=== PATIENT | female | born 1955 | race Caucasian/White ===

== ENCOUNTER 2017-04-16 20:24 | Emergency (ER) | payer BC ==
[2017-04-16] MEDS ORDERED: diphenhydrAMINE 50 MG/ML SDV IVPUSH ONE (20:35)
[2017-04-16] MEDS ORDERED: methylPREDNISolone Sodium Succinate 125 MG/2 ML SDV IVPUSH ONE (20:35)
--- NOTE | 2017-04-16 20:55 | EDM.PDOC ---
ED HPI GENERAL MEDICAL PROBLEM - General Chief Complaint: Allergic Reaction Stated Complaint: REACTION VERY RED Time Seen by Provider: 04/16/17 20:50 Source of Information: Reports: Patient, Family History Limitations: Reports: No Limitations - History of Present Illness INITIAL COMMENTS - FREE TEXT/NARRATIVE: 61-year-old female arrives with an acute systemic cutaneous allergic reaction with redness, pruritus and discomfort. She was started on prednisone for poison rosalee on her wrists and face, and is also taking drops under her tongue for "Lyme' s disease". Tonight after a walk she was looking at her tompkins in her garden when she started to get lower abdominal discomfort and felt she needed to have diarrhea. She then became warm and started to have redness of her chest and face , went in to take a shower and it worsened and became more diffuse. She then felt it was difficult to swallow and was having some tongue swelling so came in. She arrived with normal vitals but diffuse erythema of the face chest and extremities. She felt shaky. Onset: Sudden Duration: Hour(s): (Within the last hour) Location: Reports: Generalized Severity: Moderate Associated Symptoms: Reports: Other (A sensation of oral swelling and tongue thickness, some difficulty swallowing). Denies: Fever/Chills, Headaches, Shortness of Breath Generalized Pain Score (Numeric/FACES): 2 - Related Data Allergies Allergy/AdvReac Type Severity Reaction Status Date / Time erythromycin base AdvReac Shortness Verified 04/16/17 20:47 of Breath Home Meds: Home Meds Cholecalciferol (Vitamin D3) [Vitamin D] 1,000 unit PO DAILY 12/23/14 [History] Evening [place] Oil [Evening [place]] 500 mg PO BEDTIME 12/23/14 [History] Multivitamin with Minerals [Multiple Vitamin] 1 tab PO DAILY 12/23/14 [History] Social & Family History - Tobacco Use Smoking Status *Q: Never Smoker Second Hand Smoke Exposure: No - Alcohol Use Days Per Week of Alcohol Use: 0 - Recreational Drug Use Recreational Drug Use: No ED ROS ALLERGIC REACTION - Review of Systems Review Of Systems: See Below Constitutional: Denies: Fever, Chills HEENT: Reports: Throat Swelling Respiratory: Denies: Shortness of Breath, Wheezing, Cough Cardiovascular: Denies: Chest Pain Endocrine: Denies: Fatigue GI/Abdominal: Reports: Abdominal Pain (She had some brief abdominal cramps prior to coming in) Musculoskeletal: Reports: No Symptoms Skin: Reports: Pruritis, Rash, Erythema Psychiatric: Reports: Anxiety ED EXAM GENERAL NO PERIP PULSE - Physical Exam Exam: See Below Exam Limited By: No Limitations General Appearance: Alert, Anxious, Mild Distress Ears: Other (Patient has erythema of the ears and some drying blisters typical of contact dermatitis) Throat/Mouth: Other (Oral mucosa looks grossly normal) Respiratory/Chest: No Respiratory Distress, Lungs Clear Cardiovascular: Regular Rate, Rhythm, Tachycardia GI/Abdominal: Soft Neurological: Alert Psychiatric: Anxious Skin Exam: Erythema (Diffuse blanching erythema is present of the chest and extremities and face) Course - Vital Signs Last Recorded V/S: Last Vital Signs Temp 98.8 F 04/16/17 20:46 Pulse 93 04/16/17 22:25 Resp 16 04/16/17 20:46 BP 133/72 04/16/17 22:25 Pulse Ox 92 L 04/16/17 22:25 - Orders/Labs/Meds Meds: Medications Discontinued Medications Generic Name Dose Route Start Last Admin Trade Name Sarina PRN Reason Stop Dose Admin Diphenhydramine HCl 25 mg 04/16/17 20:35 04/16/17 20:53 Benadryl IVPUSH 04/16/17 20:36 25 mg ONETIME ONE Administration Methylprednisolone Sodium Succinate 125 mg 04/16/17 20:35 04/16/17 20:54 Solu-Medrol IVPUSH 04/16/17 20:36 125 mg ONETIME ONE Administration - Re-Assessments/Exams Free Text/Narrative Re-Assessment/Exam: 04/16/17 20:55 An IV was placed and the patient was given 25 mg of Benadryl IV along with 125 mg of Solu-Medrol. She was observed. 04/16/17 21:48 after 30 minutes of the IV medication the patient felt much better, much less erythema. 04/16/17 22:13 Patient continued to feel markedly better, almost back to baseline by discharge. She will repeat Benadryl 50 mg every 4-6 hours as needed orally, and continue with topical steroids for her poison rosalee treatment but will consider holding the prednisone for the next few days. She can return if symptoms recur and are uncontrolled. Departure - Departure Time of Disposition: 22:26 Disposition: Home, Self-Care 01 Condition: Good Clinical Impression: Acute allergic reaction Qualifiers: Encounter type: initial encounter Qualified Code(s): T78.40XA - Allergy, unspecified, initial encounter - Discharge Information Instructions: Hives, Drug Allergy, [id number] Referrals: Baldomero Elias MD [Primary Care Provider] - Forms: ED Department Discharge Care Plan Goals: Repeating Benadryl 50 mg every 4-6 hours orally may be beneficial. Continue with topical steroid treatment for your poison rosalee but consider holding prednisone for 1-2 days before retrying the medication. Return anytime if worsening or concerns.
[2017-04-16 22:26] VITALS: BP 133/72
== END 2017-04-16 22:26 | disposition home or self-care (01) ==
LOC: JP.ED 20:24
DX: T78.40XA Allergy, unspecified, initial encounter (principal); Z79.899 Other long term (current) drug therapy; Z88.1 Allergy status to other antibiotic agents
CPT/HCPCS: 96374; 96375; 99283; J1200; J2930

== ENCOUNTER 2023-10-20 09:45 | Emergency (ER) | payer MEDICARE ==
[2023-10-20 10:07] VITALS: BP 135/78; PULSE 71
[2023-10-20] MEDS ORDERED: Triamcinolone Acetonide 40 MG/ML 1 ML SDV INJECT PRN (10:31)
[2023-10-20] MEDS ORDERED: Bupivacaine 0.5% 10 ML SDV INJECT ONE (10:31)
== END 2023-10-20 12:02 | disposition home or self-care (01) ==
LOC: JP.ED 09:45
DX: M70.61 Trochanteric bursitis, right hip (principal); G57.91 Unspecified mononeuropathy of right lower limb; Z88.8 Allergy status to other drugs, medicaments and biological substances; Z88.1 Allergy status to other antibiotic agents
CPT/HCPCS: 73502; 99283; J3301; J3490